=== PATIENT | male | born 1975 | race Hispanic/Latino ===

== ENCOUNTER 2020-10-16 00:30 | Emergency (ER) | payer BC, OTHER ==
[2020-10-16 01:41] LABS: BASOPHILS % (AUTO) 0.5 % (0.0-5.0); EOSINOPHILS % (AUTO) 1.9 % (0.0-8.0); HEMATOCRIT 41.9 % (42-54); LYMPHOCYTES % (AUTO) 20.1 % (21.0-51.0); MEAN CORPUSCULAR HEMOGLOBIN 28.6 pg (27.0-33.0); MEAN CORPUSCULAR HGB CONC 34.4 g/dL (32.0-36.0); MEAN CORPUSCULAR VOLUME 83.3 fL (79-99); MONOCYTES % (AUTO) 8.8 % (3.0-13.0); PLATELET COUNT (AUTO) 212 K/uL (130-400); RED BLOOD CELL COUNT(AUTO) 5.03 MIL/uL (4.50-6.20); RED CELL DISTRIBUTION WIDTH 13.3 % (11.0-15.5)
[2020-10-16 01:42] LABS: APPEARANCE,URINE Clear (CLEAR); BILIRUBIN,URINE Negative (NEGATIVE); COLOR,URINE Yellow (YELLOW); GLUCOSE, URINE (UA) Negative (NEGATIVE); KETONES,URINE Trace mg/dL (NEGATIVE); LEUKOCYTE ESTERASE ,URINE Trace (NEGATIVE); NITRATE,URINE Negative (NEGATIVE); OCCULT BLOOD,URINE Large (NEGATIVE); PH,URINE 5.5 (5.0-8.0); PROTEIN,URINE POS 1+ mg/dL (NEGATIVE)
[2020-10-16 01:45] LABS: CREATININE 1.5 mg/dL (0.5-1.5); POTASSIUM 3.4 mmol/L (3.5-5.1)
[2020-10-16 01:50] LABS: ALBUMIN 4.4 g/dL (3.5-5.0); BILIRUBIN,TOTAL 0.5 mg/dL (0.2-1.0); TOTAL PROTEIN, SERUM 7.8 g/dL (6.0-8.3)
[2020-10-16 01:53] LABS: RBC,URINE >100 /HPF (0-1); WBC,URINE 0-1 /HPF (0-1)
[2020-10-16 01:54] LABS: BACTERIA,URINE Few /HPF (None Seen)
[2020-10-16] MEDS ORDERED: MORPHINE SULFATE 2 MG/ML 1ML SYG ONE (02:30)
[2020-10-16] MEDS ORDERED: ONDANSETRON HCL 4 MG/2 ML VIAL ONE (02:30)
[2020-10-16] MEDS ORDERED: CEFTRIAXONE SODIUM 1 GM ONE (03:48)
== END 2020-10-16 04:22 | disposition home or self-care (01) ==
LOC: EDH 00:30
DX: N23 Unspecified renal colic (principal); I10 Essential (primary) hypertension
CPT/HCPCS: 36415; 74176; 80053; 81001; 85025; 96361; 96374; 96375; 99284; J0696; J2405